=== PATIENT | male | born 1990 | race American Indian/Alaskan Native ===

== ENCOUNTER 2017-04-12 00:52 | Emergency (ER) | payer OTHER ==
[2017-04-12] MEDS ORDERED: FLEXERIL PO ONE (05:37)
[2017-04-12] MEDS ORDERED: NORCO 5/325 PO ONE (05:37)
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
[2017-04-12 06:41] VITALS: BP 122/75
== END 2017-04-12 06:42 | disposition home or self-care (01) ==
LOC: ED 00:52
DX: M25.511 Pain in right shoulder (principal); M79.1 Myalgia; F17.200 Nicotine dependence, unspecified, uncomplicated; X58.XXXA Exposure to other specified factors, initial encounter; Y93.9 Activity, unspecified; Y92.9 Unspecified place or not applicable; Y99.9 Unspecified external cause status
CPT/HCPCS: 99283